=== PATIENT | male | born 1990 | race Two or more races ===

== ENCOUNTER 2024-01-22 21:45 | Emergency (ER) | payer OTHER ==
[~2024-01-22] VITALS: Ht 180.3 cm; Wt 85.9 kg
[2024-01-22 21:58] VITALS: BP 121/82; PULSE 96; RESP 18; TEMP 98.8; O2SAT 98
[2024-01-22] MEDS: PERTUSS(ACELL),DIPH,TET/PF 0.5 ML SYRINGE [ADULT] IM. ONE (23:26)
[2024-01-22] MEDS: BACITRACIN 0.9 GM PACKET OINTMENT TP ONE (23:27)
[2024-01-22] MEDS: LIDOCAINE 1% 10 ML VIAL SQ ONE (23:27)
[2024-01-22] MEDS ORDERED: IBUP-1554 PO (23:45)
[2024-01-22] MEDS ORDERED: BACI28.410 TP (23:50)
== END 2024-01-23 00:14 | disposition home or self-care (01) ==
LOC: EMS 21:45
DX: S61.211A Laceration without foreign body of left index finger without damage to nail, initial encounter (principal); F10.90 Alcohol use, unspecified, uncomplicated; W26.0XXA Contact with knife, initial encounter; Y93.89 Activity, other specified; Y92.89 Other specified places as the place of occurrence of the external cause; Y99.8 Other external cause status
CPT/HCPCS: 99282; 12002; J3490; 90715